=== PATIENT | female | born 1955 | race Caucasian/White ===

== ENCOUNTER → 2016-04-18 | Outpatient (CLI) | payer BC ==
[~2016-04-18] MED LIST: AMT50T PO; ASPI-860 PO; AZIT250T81 PO; CEPH250C PO; CEPH250T PO; CETI10TA9 PO; CIPR-226 PO; DULO30CA PO; DULO60CA58 PO; DULO60CA7 PO; FLUT1DIS3 IH; HYDR-3702 PO; HYDR12.56 PO; LEVO75TA4 PO; MELO-255 PO; METH4TAB27 PO; MNTL10T PO; OMEP20CA12 PO; OMEP20TA PO; OMG1KC PO
[2016-04-18 13:39] VITALS: BP 138/72
--- NOTE | 2016-04-18 13:39 | Urgent Care T Sheet Gen (E) ---
Intake General Temperature (Fahrenheit): 98.2 Pulse: 105 Blood Pressure Systolic: 138 Blood Pressure Diastolic: 72 Respirations: 18 SPO2: 97 Description of Symptoms Patient presents with productive cough, chest congestion and tightness and malaise. Been sick for 4 days. Has a history of asthma for which she uses Advair and ProAir. States the Advair usually helps however not this time. no fever. Notes intermittent wheezes. History of Present Illness Allergies: Coded Allergies: Sulfa (Sulfonamide Antibiotics) (Verified Allergy, Unknown, 05/09/15) Uncoded Allergies: codiene (Allergy, Unknown, 05/09/15) Home Meds Reported Medications Cephalexin 250 Mg [id number] Mg PO DAILY Infection Ref 0 08/02/15 Duloxetine HCl (Cymbalta)60 Mg Capsule.dr60 Mg PO DAILY 08/02/15 Duloxetine HCl (Cymbalta)30 Mg Capsule.dr30 Mg PO DAILY 08/02/15 Meloxicam 7.5 Mg Tablet7.5 Mg PO HS 08/02/15 [place] 3 Polyunsat Fatty Acids (Fish Oil)1,000 Mg Cap1,000 Mg PO BID 05/09/15 Cetirizine HCl (Wal-Zyr)10 Mg Uopjkl57 Mg PO DAILY 05/09/15 Omeprazole 20 Mg Tablet.dr20 Mg PO DAILY 05/09/15 Duloxetine HCl 60 Mg Capsule.dr60 Mg PO DAILY 05/09/15 Fluticasone/Salmeterol (Advair 250-50 Diskus)1 Each Disk.w.dev1 Each IH BID 05/09/15 Aspirin 81 Mg Tablet.dr81 Mg PO DAILY 05/09/15 Hydrochlorothiazide 12.5 Mg Gmvhfu18.5 Mg PO DAILY 05/09/15 Amitriptyline HCl (Elavil)50 Mg Tab50 Mg PO DAILY 05/09/15 Montelukast Sodium 10 Mg Poiccm68 Mg PO DAILY 05/09/15 Levothyroxine Sodium 75 Mcg Wexwuz11 Mcg PO DAILY 05/09/15 Respiratory Constitutional Symptoms: No Fever, Malaise EENTM: No symptoms reported Respiratory: Cough Short of breath Wheezing Cardiovascular: No symptoms reported Gastrointestinal/Abdominal: No symptoms reported All Other Systems Reviewed Remaining Systems: All other systems reviewed with negative findings Past Avqpfds-Rvuyej-Drleou Hx Patient's Social History Alcohol Use: Denies Use Smoking Status: Never smoker Recent foreign travel: No Surgeries/Hospitalizations Hospitalization/Surgery Hx: TUBAL THEN hyst lu bladder sx x3 THEN BOTOX FOR BLADDER cataract sinus heart cath 06 Respiratory Respiratory History: Asthma, Sleep Apnea, Other, see comment Comment: allergies Cardiovascular Cardiovascular History: None Reproductive System Sexually Transmitted Diseases: No Gastrointestinal GI/Endocrine History: None Diabetes Diabetes: No HEENT Impaired Vision: Glasses Hearing Impaired: None Psychosocial Behavior Disorders: Anxiety, Depression Physical Exam Physical Exam General Appearance: WD/WN No apparent distress Eyes, Ears, Nose, Throat Ex: TMs normal Pharynx normal Other (clear, thin nasal drainage) Neck Exam: SuppleNo Lymphadenopathy Respiratory Exam: Lungs clear Wheezes (very faint) Cardiovascular Exam: Regular rate, rhythm Departure Urgent Care Impression Impression: Primary Impression: Asthma exacerbation Departure Disposition: 01 HOME OR SELF-CARE Condition: Stable Referrals: ANGEL LEWIS MD (PCP) Additional Instructions: I have started the patient on Z-Pack and Medrol dose pack for treatment. She is to continue with her daily meds as prescribed. Rest. Fluids No NSAIDs while on steroid Return as needed Patient understands DC instructions. All questions were answered. Scripts Methylprednisolone (Medrol Dosepack)21 Tab/Pkt Tablet6 Tab PO DAILY Inflammation #1 PKT Ref 0 Take 6 tabs po on day 1 then decrease by 1 tab daily until packet is gone. Prov:DENICE WING 04/18/16 Azithromycin (Zithromax Z-Julio César)6 Tab/Pkt Hjmrsn684 Mg PO SEE INSTRUCTIONS #6 TAB Ref 0 Day One: Take 2 tablets by mouth Days Two-Five: Take 1 tablet by mouth Prov:DENICE WING 04/18/16 End of report . DENICE WING Apr 18, 2016 13:39
== END ==
LOC: MHUC 13:22
PROVIDERS: ATTEND Physician Assistant
DX: J45.901 Unspecified asthma with (acute) exacerbation (principal)
CPT/HCPCS: 99213

== ENCOUNTER → 2016-05-10 | Outpatient (CLI) | payer BC ==
[2016-05-10 12:30] LABS: BILIRUBIN,URINE Negative (Negative); COLOR,URINE Yellow; GLUCOSE, URINE (UA) Negative (Negative); LEUKOCYTE ESTERASE, URINE 1+ (Negative); UROBILINOGEN,URINE 0.2 mg/dL (0.2-1.0)
[2016-05-10 12:33] LABS: CLARITY,URINE Slightly Cloudy
[2016-05-10 12:47] LABS: RBC,URINE 0-2 /HPF; URINE CENTRIFUGED VOLUME 12 mL
== END ==
LOC: LAB 12:13
PROVIDERS: ATTEND Nurse Practitioner Family
DX: E11.9 Type 2 diabetes mellitus without complications (principal)
CPT/HCPCS: 81003; 81015; 82043

== ENCOUNTER → 2016-05-10 | Outpatient (REF) | payer BC | LOC: LAB 09:24 | PROVIDERS: ATTEND Nurse Practitioner Family | DX: E11.9 Type 2 diabetes mellitus without complications (principal) | CPT/HCPCS: 83036 ==

== ENCOUNTER → 2016-08-15 | Outpatient (REF) | payer BC | LOC: LAB 08:28 | PROVIDERS: ATTEND Nurse Practitioner Family | DX: E11.9 Type 2 diabetes mellitus without complications (principal) | CPT/HCPCS: 83036 ==